=== PATIENT | female | born 1975 | race Caucasian/White ===

== ENCOUNTER → 2016-07-25 | Outpatient (CLI) | payer OTHER ==
[~2016-07-25] MED LIST: LOESTRIN; SULF800T23 PO
--- NOTE | 2016-07-25 14:46 | MAMMOGRAPHY REPORT ---
UNILATERAL LEFT DIGITAL DIAGNOSTIC MAMMOGRAM TOMOSYNTHESIS WITH CAD: 07/25/2016 CLINICAL HISTORY: 40 year-old woman presents for follow-up of 3 loosely grouped benign-appearing ethel ro-calcifications in the left breast. TECHNIQUE: Left CC and MLO 2-D digital and tomosynthesis images, spot magnification left CC and ML v iews were obtained. Current study was also evaluated with a Computer Aided Detection (CAD) system. COMPARISON: Comparison is made to exams dated: 01/25/2016 ultrasound and 01/25/2016 mammogram - [facility]. BREAST COMPOSITION: The tissue of the left breast is almost entirely fatty. FINDINGS: There is a loose grouping of punctate monomorphic microcalcifications in the upper outer m iddle one third of the left breast. When comparing to the spot magnification views performed 2015, the microcalcifications are unchanged in number and distribution. No new suspicious mass, arc hitectural distortion or cluster of new, suspicious microcalcifications is seen throughout the left breast. IMPRESSION: ACR-BI-RADS CATEGORY 3: PROBABLY BENIGN The loosely grouped punctate monomorphic microcalcifications in the upper outer quadrant of the left breast are unchanged comparing back to 01/25/2016, therefore likely benign. However, long-term sta bility is not demonstrated and another short interval follow-up diagnostic left mammogram including spot magnification views is recommended in 6 more months. Annual right mammography will also be due at that time. These results and recommendations were discussed with the patient at the time of the exam. She tent atively scheduled a follow-up appointment prior to leaving our department. Approximately 10% of breast cancers are not detected with mammography. A negative mammographic repor t should not delay biopsy if a clinically suggestive mass is present. Arianna Whittaker M.D. ay/:07/25/2016 09:58:58 Lead Custodian: Claudette ZARCO(Stella)(M), [facility] letter sent: Follow Up Recommended 3 BI-RADS Code: ACR-BI-RADS Category 3: Probably Benign
== END | disposition home or self-care (01) ==
LOC: C.MAMM 08:57
PROVIDERS: ATTEND Obstetrics & Gynecology
DX: R92.0 Mammographic microcalcification found on diagnostic imaging of breast (principal)

== ENCOUNTER → 2017-01-26 | Outpatient (CLI) | payer OTHER ==
--- NOTE | 2017-01-26 15:31 | MAMMOGRAPHY REPORT ---
BILATERAL DIGITAL DIAGNOSTIC MAMMOGRAM TOMOSYNTHESIS WITH CAD: 01/26/2017 CLINICAL HISTORY: Short interval follow-up of left breast calcifications. Due for routine mammograph y of the right breast. TECHNIQUE: Breast tomosynthesis in addition to standard 2D mammography was performed. Current study was also evaluated with a Computer Aided Detection (CAD) system. Bilateral CC and MLO 2-D and tomosy nthesis images and spot magnification left CC and ML views were obtained. COMPARISON: Comparison is made to exams dated: 07/25/2016 mammogram, 01/25/2016 ultrasound, and 01/24 mammogram - [facility]. BREAST COMPOSITION: There are scattered areas of fibroglandular density in both breasts. FINDINGS: The previously described small 2 mm cluster of punctate benign appearing calcifications in the left upper outer breast is stable dating back to the January 2016 exam. Given the stability an d benign morphology, the calcifications are considered benign. The remainder of both breasts are stable compared to prior exams, without suspicious masses, calcific ations, or areas of architectural distortion noted. IMPRESSION: ACR BI-RADS CATEGORY 2: BENIGN Small cluster of benign-appearing calcifications in the left upper outer quadrant is stable dating ba ck to the January 2016 exam, and considered benign given the stability and benign morphology. There is no mammographic evidence of malignancy in either breast. A 1 year screening mammogram is recommend ed. The patient has been verbally notified of the results. Approximately 10% of breast cancers are not detected with mammography. A negative mammographic report should not delay biopsy if a clinically suggestive mass is present. Mariah Ward M.D. ah/:01/26/2017 09:45:40 Towing Pilot: Claudette ZARCO(R)(M), [facility] letter sent: Normal 1/2 BI-RADS Code: ACR BI-RADS Category 2: Benign
== END | disposition home or self-care (01) ==
LOC: C.MAMM 08:37
PROVIDERS: ATTEND Obstetrics & Gynecology
DX: R92.1 Mammographic calcification found on diagnostic imaging of breast (principal)

== ENCOUNTER 2017-03-29 12:49 | Emergency (ER) | payer OTHER ==
[~2017-03-29] VITALS: Ht 162.6 cm; Wt 120.0 kg
[2017-03-29 12:50] VITALS: TEMP 36.5; Ht 162.6 cm; Wt 120.0 kg
[2017-03-29] MEDS ORDERED: SODIUM CHLORIDE 0.9% 1000ML 1,000 ML IV STA (13:15)
[2017-03-29 13:51] LABS: BASO % 0.2 %; BASO ABS # 0.02 K/uL (0-0.2); EOS % 1.4 %; EOS ABS # 0.12 K/uL (0-0.5); HEMATOCRIT 42.1 % (37-47); HEMOGLOBIN 14.2 g/dL (12.0-16.0); IG# 0.02 K/uL (0.00-0.02); LYMPH % 19.2 %; MEAN CELL VOLUME 91.3 fL (80-100); MEAN CORPUSCULAR HEMOGLOBIN 30.8 pg (25-34); MEAN CORPUSCULAR HGB CONC 33.7 g/dl (32-36); MEAN PLATELET VOLUME 10.5 fL (7.4-10.4); MONO % 6.8 %; NEUT % 72.2 %; NEUT ABS # 6.41 K/uL (1.4-6.5); PLATELET COUNT 210 K/uL (130-400); RED CELL DISTRIBUTION WIDTH SD 43.3 fL (36.4-46.3); WHITE BLOOD COUNT 8.87 K/uL (4.8-10.8)
[2017-03-29 14:10] LABS: ALBUMIN 3.6 gm/dl (3.4-5.0); ALT/SGPT 28 U/L (12-78); BLOOD UREA NITROGEN 12 mg/dl (7-18); CALCIUM 8.9 mg/dl (8.5-10.1); CARBON DIOXIDE 24 mmol/L (21-32); CREATININE 0.65 mg/dl (0.60-1.20); GLUCOSE 89 mg/dl (70-99); LIPASE 119 U/L (73-393); POTASSIUM 3.7 mmol/L (3.5-5.1); SODIUM 135 mmol/L (136-145)
[2017-03-29 14:13] LABS: ALKALINE PHOSPHATASE 58 U/L (45-117); AST/SGOT 20 U/L (15-37)
[2017-03-29] MEDS ORDERED: OPTIRAY 320 IV PRN (14:30)
--- NOTE | 2017-03-29 14:52 | DIAGNOSTIC IMAGING REPORT ---
PELVIC COMPLETE NON OB CLINICAL HISTORY: ABDOMINAL PAIN/N/V/D PAIN. NAUSEA. VOMITING. COMPARISON STUDY: None FINDINGS: The uterus measured 10. The endometrial stripe measured 7 mm. The right ovary measured 4.4 x 2.7 cm maximum dimension with normal vascular flow. 1.7 cm cyst.. The left ovary measured 3.8 x 3.8 cm maximum dimension. 2.3 cm cyst. Normal vascular flow.. There is no ultrasonographic evidence of ovarian torsion. It should be noted that ovarian torsion can be present with normal Doppler ultrasonographic findings. There was no evidence of pathologic free pelvic fluid. IMPRESSION: 1. Bilateral ovarian cysts. 2. Normal vascular flow is confirmed to both ovaries. 3. Otherwise negative study The above report was generated using voice recognition software. It may contain grammatical, syntax or spelling errors. Electronically signed by: Pola Ruano M.D. 03/29/2017 2:50 PM Dictated Date/Time: 03/29/2017 2:49 PM
[2017-03-29] MEDS ORDERED: LISI20TA3 PO (15:10)
--- NOTE | 2017-03-29 16:41 | DIAGNOSTIC IMAGING REPORT ---
CT SCAN OF THE ABDOMEN AND PELVIS WITH IV CONTRAST CLINICAL HISTORY: Lower abdominal pain. COMPARISON STUDY: Abdominal CT dated 04/01/2007. Pelvic ultrasound dated 03/29/2017. TECHNIQUE: Following the IV administration of 115 cc of Optiray 320, CT scan of the abdomen and pelvis is performed from the lung bases to the proximal femora. Images are reviewed in the axial, sagittal, and coronal planes. IV contrast was administered without complication. A dose lowering technique was utilized adhering to the principles of ALARA. CT DOSE: 1519.24 mGy.cm FINDINGS: Lung bases: The heart is normal in size and without pericardial effusion. The lung bases are clear. There is a tiny hiatal hernia. Liver: The contrast-enhanced liver is top normal in size and demonstrates diffusely diminished attenuation consistent with hepatic steatosis. There is minimal central intrahepatic biliary ductal dilatation. The hepatic veins and portal veins are patent. Gallbladder: Surgically absent noting clips in the gallbladder fossa. Spleen: Normal in size and attenuation. Pancreas: Unremarkable. Adrenal glands: Unremarkable. Kidneys: The contrast enhanced kidneys are normal in size and without hydronephrosis. The kidneys enhance symmetrically. A subcentimeter cortical hypodensity in the left kidney likely represents a cyst but is too small for definitive characterization. A focus of cortical scarring is noted in the upper pole the right kidney. Abdominal vasculature: The abdominal aorta is normal in course and caliber. Bowel: The small bowel and colon are normal in course and caliber. The appendix is well-visualized and normal. Peritoneum: There is no intraperitoneal free air or abdominal ascites. There is a fat-containing umbilical hernia. Lymphadenopathy: None. Pelvic viscera: The bladder and uterus are normal in appearance. There are numerous bilateral ovarian follicles. A dominant follicle in the left ovary measures up to 3.2 cm. Skeletal structures: No lytic or blastic lesions are seen. IMPRESSION: 1. There are no acute infectious or inflammatory findings in the abdomen or pelvis. 2. Hepatomegaly and hepatic steatosis. Electronically signed by: Pradeep Mcpherson M.D. 03/29/2017 4:40 PM Dictated Date/Time: 03/29/2017 4:35 PM
[2017-03-29 17:06] VITALS: BP 143/78; PULSE 86; O2SAT 98
--- NOTE | 2017-03-30 16:04 | EMERGENCY ROOM VISIT NOTE ---
ED Visit Note First contact with patient: 13:04 Chief Complaint: Abdominal pain History of Present Illness: Ms. Alex is a 41 year-old white female who ambulates into the ED accompanied by her complaining of left lower quadrant abdominal pain. Historically patient reports she has no history of gastrointestinal disorder and is status post cholecystectomy without complications. Patient reports a acute onset of left lower quadrant abdominal pain that started approximately 1 hour ago. She reports she finished going to the bathroom including urinating and having a bowel movement. She stood up from the toilet and developed an acute onset of pain. Since that time her pain has been constant. She places her discomfort approximately 4-5 cm laterally and 2- 3 cm inferiorly to the umbilicus. She describes her discomfort as a pressure sensation. She rates her discomfort 7/10. Her pain is nonradiating. She has not identified any aggravating or alleviating factors related to her discomfort. She has not taken any medications for her discomfort prior to arrival at the hospital. She denies any associated symptoms including fevers, chills, sweats, skin eruptions, skin color changes, upper respiratory tract symptoms, shortness of breath, chest pain, nausea, vomiting, diarrhea, constipation, rectal bleeding, black/tarry stools, urinary symptoms, hematuria, vaginal bleeding, vaginal discharge, back/flank pain. Review of Systems: As noted above in history of present illness. All body systems were reviewed and found to be negative as noted above. Past Medical History: As previously noted, hypertension. Current Medications: Lisinopril. Allergies to Medications: Patient denies. Social History: Patient is currently employed; she feels safe in her home environment; she denies tobacco and alcohol use. Physical Examination: Vital Signs: Date Time Temp Pulse Resp B/P (MAP) Pulse Ox O2 Delivery O2 Flow Rate FiO2 03/29/17 17:06 86 143/78 98 03/29/17 16:18 80 128/79 99 Room Air 03/29/17 14:47 88 18 128/84 99 Room Air 03/29/17 12:50 36.5 91 16 162/88 99 GENERAL: 41-year-old female in moderate distress due to pain, nontoxic-appearing , afebrile and hemodynamically stable. NEUROLOGICAL: Awake, alert and oriented to person, place and time. Answering questions appropriately and following commands. Normal gait. Good hand eye coordination. SKIN: Warm, dry and pink. No soft tissue eruptions or trauma noted. HEENT: Atraumatic and normocephalic. PERRLA. Sclera white and conjunctiva pink. Oral cavity moist and pink. Pharynx is nonerythematous or edematous. Speech normal. No lymphadenopathy. Trachea midline. No jugular venous distention. BACK: No tenderness over the bony spine. No CVA tenderness. THORAX: Lungs sounds are clear to auscultation and equal bilaterally with symmetrical chest wall. No wheezing, rales or rhonchi. No crepitus, tenderness , subcutaneous air or deformities noted. HEART: Regular rate and rhythm. No gallops, rubs or murmurs are appreciated. ABDOMEN: Obese and soft with mild tenderness directly over the umbilicus and moderate tenderness just lateral and inferior to the umbilicus in the area of her discomfort. No tenderness within the pelvis. Positive bowel sounds in all quadrants. No guarding, rigidity or organomegaly. EXTREMITIES: Moves all extremities well on command and with purpose. All distal neurovascular statuses are intact and equal bilaterally. ED Course: Patient is assessed as noted above. Patient's medication list was reviewed. Laboratory Testing: Test 03/29/17 13:00 03/29/17 13:31 Range/Units Urine Color YELLOW Urine Appearance TURBID CLEAR Urine pH 5.0 4.5-7.5 Urine Specific [place] 1.025 1.000-1.030 Urine Protein NEG NEG Urine Glucose (UA) NEG NEG Urine Ketones NEG NEG Urine Occult Blood NEG NEG Urine Nitrite NEG NEG Urine Bilirubin NEG NEG Urine Urobilinogen NEG NEG Urine Leukocyte Esterase MODERATE NEG Urine WBC (Auto) >30 0-5 /hpf Urine RBC (Auto) 0-4 0-4 /hpf Urine Hyaline Casts (Auto) 10-30 0-5 /lpf Urine Epithelial Cells (Auto) >30 0-5 /lpf Urine Bacteria (Auto) 2+ NEG Urine Yeast (Auto) NONE PRSENT Urine Test NEG NEG White Blood Count 8.87 4.8-10.8 K/uL Red Blood Count 4.61 4.2-5.4 M/uL Hemoglobin 14.2 12.0-16.0 g/dL Hematocrit 42.1 37-47 % Mean Corpuscular Volume 91.3 80-100 fL Mean Corpuscular Hemoglobin 30.8 25-34 pg Mean Corpuscular Hemoglobin Concent 33.7 32-36 g/dl Platelet Count 210 130-400 K/uL Mean Platelet Volume 10.5 7.4-10.4 fL Neutrophils (%) (Auto) 72.2 % Lymphocytes (%) (Auto) 19.2 % Monocytes (%) (Auto) 6.8 % Eosinophils (%) (Auto) 1.4 % Basophils (%) (Auto) 0.2 % Neutrophils # (Auto) 6.41 1.4-6.5 K/uL Lymphocytes # (Auto) 1.70 1.2-3.4 K/uL Monocytes # (Auto) 0.60 0.11-0.59 K/uL Eosinophils # (Auto) 0.12 0-0.5 K/uL Basophils # (Auto) 0.02 0-0.2 K/uL RDW Standard Deviation 43.3 36.4-46.3 fL RDW Coefficient of Variation 13.0 11.5-14.5 % Immature Granulocyte % (Auto) 0.2 % Immature Granulocyte # (Auto) 0.02 0.00-0.02 K/uL Sodium Level 135 136-145 mmol/L Potassium Level 3.7 3.5-5.1 mmol/L Chloride Level 101 98-107 mmol/L Carbon Dioxide Level 24 21-32 mmol/L Anion Gap 10.0 3-11 mmol/L Blood Urea Nitrogen 12 7-18 mg/dl Creatinine 0.65 0.60-1.20 mg/dl Est Creatinine Clear Calc Drug Dose 145.4 ml/min Estimated GFR () 127.8 Estimated GFR (Non- 110.3 BUN/Creatinine Ratio 17.8 10-20 Random Glucose 89 70-99 mg/dl Calcium Level 8.9 8.5-10.1 mg/dl Total Bilirubin 0.4 0.2-1 mg/dl Direct Bilirubin < 0.1 0-0.2 mg/dl Aspartate Amino Transf (AST/SGOT) 20 15-37 U/L Alanine Aminotransferase (ALT/SGPT) 28 12-78 U/L Alkaline Phosphatase 58 45-117 U/L Total Protein 8.0 6.4-8.2 gm/dl Albumin 3.6 3.4-5.0 gm/dl Lipase 119 73-393 U/L Contrast Abdominal/Pelvic CT: Was reviewed by myself and read by the radiologist showing no acute inflammatory or infectious findings within the abdomen or pelvis. Hepatomegaly and hepatic steatosis Pelvic Ultrasound: Was reviewed by myself and read by the radiologist showing bilateral ovarian cysts with normal vascular flow to both ovaries; otherwise negative study. Patient was hydrated with normal saline; patient was offered pain medications multiple times and refused. Patient was reassessed multiple times. Patient's case was reviewed with Dr. Mi; we agreed on diagnostic approach , treatment, disposition and plan. Patient was educated about today's findings and instructed on her treatment plan ; she verbalized understanding and agreement with this plan. Clinical Impression: Acute left lower quadrant abdominal pain. Decision-Making: Initially my differential diagnosis I considered ovarian abscess rupture, ovarian torsion, appendicitis, diverticulitis, ureter calculus , constipation, perforated viscus and other causes. Disposition: Patient discharged home in stable condition; prior to departure she was reassessed and subjectively reported that she was pain and symptom-free. Plan: Patient was encouraged to alternate ibuprofen and acetaminophen as needed for persistent pain. Patient was encouraged to stay well-hydrated with increased clear fluids. Patient was encouraged to follow-up with her PCP for recheck in 2-3 days if no better. Patient was encouraged return ED for worsening/uncontrolled pain, fevers, vomiting, diarrhea, bloody stools, bloody urine or any new/concerning symptoms.
== END 2017-03-29 17:08 | disposition home or self-care (01) ==
LOC: C.EDB 12:49
DX: R10.32 Left lower quadrant pain (principal); I10 Essential (primary) hypertension; Z90.49 Acquired absence of other specified parts of digestive tract; Z79.899 Other long term (current) drug therapy